=== PATIENT | male | born 1995 | race Two or more races ===

== ENCOUNTER 2022-10-29 13:44 | Emergency (ER) | payer OTHER ==
[~2022-10-29] VITALS: Ht 182.9 cm; Wt 90.7 kg
[2022-10-29 14:17] VITALS: BP 123/75
--- NOTE | 2022-10-29 14:43 | NUR ---
SEEN AND EVALUATED BY DR GARCIA. MEDICALLY CLEARED. D/C IN STABLE CONDITION.
== END 2022-10-29 14:45 | disposition home or self-care (01) ==
LOC: ER 13:51